=== PATIENT | female | born 1955 | race Caucasian/White ===

== ENCOUNTER 2019-03-22 06:17 | Inpatient (IN) ==
--- NOTE | 2019-02-14 15:50 | PAT Medication Instructions ---
Medication Instructions Date of Service February 14, 2019 Home Medications albuterol sulfate 2.5 mg INHALATION Q6H PRN azelastine 1 spray INTRANASAL BID PRN celecoxib [Celebrex] 200 mg PO HS citalopram [Celexa] 10 mg PO HS fluticasone propionate [Flonase Allergy Relief] 2 spray INTRANASAL HS PRN fluticasone propionate [Flovent HFA] 2 puff INHALATION BID PRN ipratropium-albuterol [Combivent Respimat] 2 puff INHALATION Q4H PRN lansoprazole 30 mg PO QAM prednisone 10 mg PO UD PRN Continue as directed prednisone 10 mg PO UD PRN (if needed) ASK your surgeon for instructions celecoxib [Celebrex] 200 mg PO HS Take morning of surgery With a small sip of water, OTHERWISE NOTHING TO EAT OR DRINK AFTER MIDNIGHT: albuterol sulfate 2.5 mg INHALATION Q6H PRN (use if needed; please bring with you to hospital day of surgery if possible) azelastine 1 spray INTRANASAL BID PRN (if needed) fluticasone propionate [Flovent HFA] 2 puff INHALATION BID PRN (if needed) ipratropium-albuterol [Combivent Respimat] 2 puff INHALATION Q4H PRN (if needed) lansoprazole 30 mg PO QAM Take evening before surgery albuterol sulfate 2.5 mg INHALATION Q6H PRN (if needed) azelastine 1 spray INTRANASAL BID PRN (if needed) citalopram [Celexa] 10 mg PO HS fluticasone propionate [Flonase Allergy Relief] 2 spray INTRANASAL HS PRN (if needed) fluticasone propionate [Flovent HFA] 2 puff INHALATION BID PRN (if needed) ipratropium-albuterol [Combivent Respimat] 2 puff INHALATION Q4H PRN (if needed) Other Notes If you have any questions please call us at [phone] or [phone] or [phone] or [phone]
--- NOTE | 2019-02-14 16:03 | PAT Medication Instructions ---
Medication Instructions Date of Service February 14, 2019 Home Medications albuterol sulfate 2.5 mg INHALATION Q6H PRN azelastine 1 spray INTRANASAL BID PRN celecoxib [Celebrex] 200 mg PO HS citalopram [Celexa] 10 mg PO HS fluticasone propionate [Flonase Allergy Relief] 2 spray INTRANASAL HS PRN fluticasone propionate [Flovent HFA] 2 puff INHALATION BID PRN ipratropium-albuterol [Combivent Respimat] 2 puff INHALATION Q4H PRN lansoprazole 30 mg PO QAM prednisone 10 mg PO UD PRN ASK your surgeon for instructions celecoxib [Celebrex] 200 mg PO HS Take morning of surgery With a small sip of water, OTHERWISE NOTHING TO EAT OR DRINK AFTER MIDNIGHT: albuterol sulfate 2.5 mg INHALATION Q6H PRN (if needed, and bring with you to the hospital) azelastine 1 spray INTRANASAL BID PRN (if needed) fluticasone propionate [Flovent HFA] 2 puff INHALATION BID PRN (if needed) ipratropium-albuterol [Combivent Respimat] 2 puff INHALATION Q4H PRN (if needed) lansoprazole 30 mg PO QAM prednisone 10 mg PO UD PRN (if needed) Take evening before surgery albuterol sulfate 2.5 mg INHALATION Q6H PRN (if needed) azelastine 1 spray INTRANASAL BID PRN (if needed) citalopram [Celexa] 10 mg PO HS fluticasone propionate [Flonase Allergy Relief] 2 spray INTRANASAL HS PRN (if needed) fluticasone propionate [Flovent HFA] 2 puff INHALATION BID PRN (if needed) ipratropium-albuterol [Combivent Respimat] 2 puff INHALATION Q4H PRN (if needed) prednisone 10 mg PO UD PRN (if needed) Other Notes If you have any questions please call us at [phone] or [phone] or [phone] or [phone]
--- NOTE | 2019-02-15 14:08 | Anesthesiology Consultation ---
Date of Service February 15, 2019 Assessment & Plan (1) Encounter for pre-operative examination: Cardiology Clearance 03/20/19 = "No further testing needed from a cardiac standpoint prior to her surgery." *PRESENCE OF SPINAL CORD STIMULATOR* Chart Review Chart Review: Acceptable Risk for Surgery and Patient seen in Pre Admission Testing Teaching & Discussion Instructed NPO after midnight before surgery, except medications with 15 cc of water. Medication instructions provided according to the PAT guidelines. History Surgery Operation Date: 03/22/19 08:40 Proposed Procedures p Right Total Knee Arthroplasty - Delgado Greene MD Height/Weight Height: 5 ft Weight: 83.6 kg Allergies Allergy/AdvReac Type Severity Reaction Status Date / Time Penicillins Allergy Unknown Unknown Verified 03/22/19 07:24 Sulfa (Sulfonamide AdvReac Vomiting Verified 03/22/19 06:50 Antibiotics) Medications Home Medications Medication Instructions Recorded Confirmed Last Taken albuterol sulfate 2.5 mg INHALATION Q6H PRN 02/07/19 03/22/19 Unknown azelastine 1 spray INTRANASAL BID PRN 02/07/19 03/22/19 02/19/19 celecoxib [Celebrex] 200 mg PO HS 02/07/19 03/22/19 03/21/19 22:00 citalopram [Celexa] 20 mg PO HS 02/07/19 03/22/19 03/21/19 22:00 fluticasone propionate [Flonase 2 spray INTRANASAL HS PRN 02/07/19 03/22/19 03/21/19 22:00 Allergy Relief] fluticasone propionate [Flovent 2 puff INHALATION BID PRN 02/07/19 03/22/1910/31 HFA] ipratropium-albuterol [Combivent 2 puff INHALATION Q4H PRN 02/07/19 03/22/19 03/21/19 10:00 Respimat] lansoprazole 30 mg PO QAM 02/07/19 03/22/19 03/21/19 22:00 prednisone 10 mg PO UD PRN 02/07/19 03/22/19 Unknown Active Medications Generic Name Dose Route Start Last Admin Trade Name Freq PRN Reason Stop Dose Admin Acetaminophen 1,000 mg 03/22/19 06:00 03/22/19 07:45 Tylenol PO 04/21/19 05:59 1,000 mg PREOP MARTHA Administration Celecoxib 200 mg 03/22/19 06:00 03/22/19 07:44 Celebrex PO 04/21/19 05:59 200 mg PREOP MARTHA Administration Dexamethasone 8 mg 03/22/19 06:00 03/22/19 07:45 Decadron PO 04/21/19 05:59 8 mg PREOP MARTHA Administration Famotidine 20 mg 03/22/19 06:00 03/22/19 07:44 Pepcid PO 04/21/19 05:59 20 mg PREOP MARTHA Administration Gabapentin 600 mg 03/22/19 06:00 03/22/19 07:44 Neurontin PO 04/21/19 05:59 600 mg PREOP MARTHA Administration Lactated Ringer's 1,000 mls @ 15 mls/hr 03/22/19 06:00 03/22/19 07:21 Lr IV 04/21/19 05:59 15 mls/hr .Q24H MARTHA Administration Vancomycin HCl 1,250 mg/ 275 mls @ 250 mls/hr 03/22/19 06:00 03/22/19 07:22 Sodium Chloride IV 03/23/19 05:59 250 mls/hr PREOP MARTHA Administration Metoclopramide HCl 10 mg 03/22/19 06:00 03/22/19 07:45 Reglan PO 04/21/19 05:59 10 mg PREOP MARTHA Administration Past Medical History Medical History Anxiety Asthma USES PRN INH 1XMO ON AVG COPD (chronic obstructive pulmonary disease) Depression Diverticular disease GERD (gastroesophageal reflux disease) History of colitis Nausea x 3 years, had cholecystectomy, ultimately ruled IBS. History of gastric ulcer IBS (irritable bowel syndrome) Osteoarthritis Sciatic nerve pain Shoulder pain Patient describes occasional twinges in upper chest/shoulder area; occurs at rest or with activity, patient feels secondary to indigestion. Exercise / Class Metabolic Activity II 4-5 Yardwork/Stairs/Walk up hill (Denies CP or SOB with 1 FOS) Past Family History Family History Mother Family history of diabetes mellitus Past Surgical History Surgical History History of arthroscopy of right knee History of cholecystectomy History of colonoscopy History of conization of cervix History of D&C History of esophagogastroduodenoscopy (EGD) History of fundoplication History of right knee surgery Nausea and vomiting after administration of anesthetic agent S/P insertion of spinal cord stimulator Status post correction of deviated nasal septum X 2 Past Anesthesia History No Hx of Anesthesia Complications (other than some PONV) History of PONV No Hx of Motion Sickness and History of PONV (few episodes) Social History Smoking Status: Never smoker Do You Dip or Chew Tobacco: No Hx Alcohol Use: Yes Alcohol type: beer and hard liquor alcohol intake frequency: holidays/special occasions only Hx Substance Use: No substance use type: does not use Review of Systems Pt denies any recent chest pain, shortness of breath, palpitations, cough, fever or URI. Physical Exam Vital Signs Last Vital Signs Temp 36.6 C 03/22/19 07:24 Pulse 60 03/22/19 07:24 Resp 18 03/22/19 07:24 BP 147/76 H 03/22/19 07:24 Pulse Ox 92 03/22/19 07:24 BP: 127/82 P: 75bpm SPO2: 95% T: 97.7 F R: 16 Constitutional No acute distress. ENMT Mouth: + dental bridge (upper L canine/cuspid); no chipped teeth and no loose teeth Thyromental Distance: < 3.5 Finger Breadths (3) Mallampati Class: III Neck normal visual inspection; neck extension not limited Respiratory normal respiratory effort Auscultation: lungs clear to auscultation bilaterally Cardiovascular Rate/Rhythm: regular rate and regular rhythm Heart Sounds: + murmur (I/ systolic RSB) Vessels: no carotid bruit Extremities: no edema Testing Laboratory Results 02/15/19 13:42 02/15/19 13:42 PT 10.4 Seconds (9.0-12.0) 02/15/19 13:42 INR 1.0 (0.9-1.1) 02/15/19 13:42 APTT 25.1 Seconds (21.0-31.0) 02/15/19 13:42 Hemoglobin A1c 5.9 % (4.5-5.6) H 02/15/19 13:42 Urine Color Yellow 02/15/19 Unknown Urine Appearance Clear (Clear) 02/15/19 Unknown Urine pH 5.0 (4.5-7.5) 02/15/19 Unknown Ur Specific [place] 1.019 (1.000-1.030) 02/15/19 Unknown Urine Protein Negative (Negative) 02/15/19 Unknown Urine Glucose (UA) Negative (Negative) 02/15/19 Unknown Urine Ketones Negative (Negative) 02/15/19 Unknown Urine Nitrite Negative (Negative) 02/15/19 Unknown Ur Leukocyte Esterase 1+ (Negative) H 02/15/19 Unknown Urine WBC (Auto) 1-5 /hpf (0-5) 02/15/19 Unknown Urine RBC (Auto) 0-4 /hpf (0-4) 02/15/19 Unknown U Hyaline Cast (Auto) 0 /lpf (0-5) 02/15/19 Unknown U Epithel Cells (Auto) 10-20 /lpf (0-5) H 02/15/19 Unknown Urine Bacteria (Auto) Negative (Negative) 02/15/19 Unknown Blood Type A Positive 02/15/19 13:42 Antibody Screen NEGATIVE 02/15/19 13:42 Electrocardiogram Date: 02/15/19 Findings: + NSR @ (75bpm) and + LBBB Chest X-Ray Date: 02/15/19 IMPRESSION: Cardiac silhouette is top normal in size. Otherwise, no acute process within the chest. Echocardiogram Date: 03/17/19 EF: 57% Left ventricular systolic function is normal. Right ventricular systolic function is normal. Mild mitral regurgitation is present. Trivial tricuspid regurgitation is present. Signal is inadequate to calculate pulmonary artery systolic pressure. The proximal ascending thoracic aorta is borderline enlarged at 3.6 cm.
--- NOTE | 2019-02-15 14:40 | XRay Report ---
XR chest Pre-admission PA/Lat HISTORY: Preop. COMPARISON: None. FINDINGS: The lungs are clear. No pleural effusions. No pneumothorax. The heart is top normal in size . Spinal stimulator leads terminate at the T6 level. Prior cholecystectomy. IMPRESSION: Cardiac silhouette is top normal in size. Otherwise, no acute process within the chest. Electronically signed by: Terry Hubbard M.D. 02/15/2019 2:39 PM
[2019-02-15 15:42] LABS: Basophils # (auto) 0.06 K/uL (0-0.2); Basophils % (auto) 0.9 %; Eosinophils # (auto) 0.17 K/uL (0-0.5); Eosinophils % (auto) 2.5 %; Hematocrit (blood only) 38.5 % (37-47); Hemoglobin 12.5 g/dL (12.0-16.0); Immature Granulocytes # (auto) 0.01 K/uL (0.00-0.02); Immature Granulocytes % (auto) 0.1 %; Lymphocytes # (auto) 1.79 K/uL (1.2-3.4); Lymphocytes % (auto) 26.4 %; Mean Corpuscular Hgb Conc 32.5 g/dL (32-36); Mean Corpuscular Volume 89.3 fL (80-100); Mean Platelet Volume 9.5 fL (7.4-10.4); Monocytes % (auto) 4.4 %; Neutrophils # (auto) 4.45 K/uL (1.4-6.5); Neutrophils % (auto) 65.7 %; Platelet Count 363 K/uL (130-400); RDW Coefficient of Variation 13.6 % (11.5-14.5); RDW Standard Deviation 44.8 fL (36.4-46.3); Red Blood Count 4.31 M/uL (4.2-5.4); White Blood Count 6.78 K/uL (4.8-10.8)
[2019-02-15 15:48] LABS: Albumin Level 3.7 gm/dl (3.4-5.0); BUN Creatinine Ratio 22.5 (10-20); Calcium 9.1 mg/dl (8.5-10.1); Creatinine Clr Calc Pharmacy 69.1 ml/min; Est GFR (African American) 90.2; Est GFR (Non-African American) 77.8; Potassium 4.3 mmol/L (3.5-5.1)
[2019-02-15 15:53] LABS: Partial Thromboplastin Ratio 0.9; Partial Thromboplastin Time 25.1 Seconds (21.0-31.0); Prothrombin Time 10.4 Seconds (9.0-12.0)
[2019-02-15 15:56] LABS: Appearance Urine Clear (Clear); Bacteria Urine Automated Negative (Negative); Bilirubin Urine Negative (Negative); Blood Urine Trace (Negative); Cast Urine Automated 0 /lpf (0-5); Color Urine Yellow; Glucose Urine UA Negative (Negative); Ketones Urine Negative (Negative); Leukocyte Esterase Urine 1+ (Negative); Nitrite Urine Negative (Negative); Protein Urine Negative (Negative); RBC Urine Automated 0-4 /hpf (0-4); Specific Gravity Urine 1.019 (1.000-1.030); Urobilinogen Urine Negative (Negative)
[2019-02-16 05:51] LABS: Estimated Average Glucose 123 mg/dl; Hemoglobin A1C 5.9 % (4.5-5.6)
--- NOTE | 2019-03-21 16:58 | History and Physical Report ---
DATE OF ADMISSION: 03/22/2019 CHIEF COMPLAINT: Chronic right knee pain. HISTORY OF PRESENT ILLNESS: This is a 63-year-old female patient of Dr. Ontiveros, complaining of chronic right knee pain, longstanding, now progressively getting worse. The patient has failed conservative treatment and has been diagnosed with end-stage osteoarthritis per clinical and radiographic exams. The patient wished to proceed with an elective right total knee arthroplasty. PAST MEDICAL HISTORY: Asthma, chronic cough, COPD, osteoarthritis, sciatica, acid reflux, hiatal hernia, obesity. SOCIAL HISTORY: Nonsmoker. Occasional drinker. PAST SURGICAL HISTORY: Deviated septum, cholecystectomy, acid reflux fundoplication, sciatic nerve dorsal column stimulator placement, right knee. FAMILY HISTORY: Noncontributory. REVIEW OF SYSTEMS: Chronic right knee pain and instability. Otherwise, denies any shortness of breath, chest pain, nausea, vomiting or any other joint complaints. MEDICATIONS: 1. Prevacid 30 mg daily. 2. Celexa 20 mg 1/2 tablet at night. 3. Zocor 40 mg at bedtime. 4. Celebrex 200 mg at bedtime. 5. Astelin 137 mcg 2 squirts in each nostril twice a day. 6. Flovent 110 mcg 2 puffs twice daily. 7. Combivent 18/103, 2 puffs every 4 hours as needed for asthma. 8. Flonase 50 mcg 2 squirts in each nostril at bedtime. 9. Prednisone 10 mg as directed. 10. She uses a liquid albuterol nebulizer as needed. ALLERGIES: SULFA AND PENICILLIN. PHYSICAL EXAMINATION: GENERAL: Well-developed, well-nourished 63-year-old female in no acute distress. She is alert and oriented x3 and pleasant. HEENT: Normocephalic, atraumatic. Extraocular motions are intact. Pupils are equal and reactive to light. HEART: Regular rate and rhythm, no murmurs. LUNGS: Clear. ABDOMEN: Soft, nontender, bowel sounds present. EXTREMITIES: Right knee reveals a varus deformity with medial joint line tenderness. She has a positive Fern's medially. She has limited range of motion of 0-125. Positive effusion. Neurologically and neurovascularly intact in her right lower extremity, 5/5 strength. DIAGNOSES: Right knee end-stage osteoarthritis, asthma, chronic cough, chronic obstructive pulmonary disease, osteoarthritis, sciatica, acid reflux, hiatal hernia, obesity. PLAN: The patient was advised of her diagnosis. Indications, risks, benefits, postop course have all been reviewed. The patient wished to proceed with a right total knee arthroplasty. Necessary consent forms, preoperative testing and clearances will be obtained.
[~2019-03-22 06:17] MED LIST: ACETAMINOPHEN 500 MG TAB PO SCH; CeleBREX 200 MG CAP PO SCH; FAMOTIDINE 20 MG TAB PO SCH; GABAPENTIN 600 MG DOSE PO SCH; LR 500ML BOLUS, THEN 15ML/HR IV SCH; METOCLOPRAMIDE HCL 10 MG TABLET PO SCH; ROPIVACAINE 0.5% HCL/PF 150 MG, BUPIVACAINE 0.5% MPF 30 ML, EPINEPHrine 30MG/30ML (OR U... INSTIL SCH; TRANEXAMIC ACID 1,000 MG **IV Intra-op IV SCH; TRANEXAMIC ACID 1,000 MG **IV Pre-op IV SCH; VANCOMYCIN HCL 1,250 MG in SODIUM CHLORIDE 0.9% 250 ML IV SCH; [UNRECOGNIZED DRUG - REMARK] SCH; dexAMETHasone 4 MG TAB PO SCH
--- OUTSIDE RECORDS SUMMARY | 2019-03-22 06:21 | External Medical Summary | Continuity of Care Document ---
:1955 Author Name Robinson Carter Address Unavailable Unavailable , Care Team Providers Name Role Phone NonMROSALIOG Raul Unavailable [email or web address] JAYLEN Carter, Ab Unavailable Unavailable Unavailable Unavailable Unavailable Problems Asthma (493.90) (J45.909) Joint pain, hip (719.45) (M25.559) Allergies and Adverse Reactions Sulfa Drugs (Allergy) Reaction: Nausea, Vomiting Medications Combivent 18-103 MCG/ACT AERO Refills: 0 Flonase 50 MCG/ACT SUSP Refills: 0 Astelin 137 MCG/SPRAY SOLN Refills: 0 Flovent AERO Refills: 0 Albuterol Sulfate 0.63 MG/3ML Inhalation Nebulization Soluti on Refills: 0 predniSONE TABS Refills: 0 Zocor TABS Refills: 0 Vicodin TABS Refills: 0 traMADol HCl TABS Refills: 0 Procedures History of Gastric Surgery Status: Compl eted History of Knee Surgery Status: Complete d History of Gallbladder Surgery Status: C ompleted History of Nasal Septal Deviation Repair Status: Completed Immunizations Immunizations not documented Family History Mother Family history of Diabetes Mellitus (V18.0) Status: Active Family history of Thyroid Status: Active Father Family history of Cirrhosis Status: Active Social History - Smoking Status Never smoker Plan of Treatment Planned Observations Planned Goals not documented Results No Known Results Results not documented
[2019-03-22] MEDS ORDERED: BUPIVACAINE 0.5 % 5 MG/1 ML PF 10ML VIAL ONE (06:38)
[2019-03-22] MEDS ORDERED: DEXAMETHASONE SOD INJ 4 MG/ML VIAL ONE (06:38)
[2019-03-22] MEDS ORDERED: BUPIVACAINE/EPINEPHRINE 0.25% 1:200,000 30 ML VIAL ONE (06:38)
[2019-03-22] MEDS ORDERED: MIDAZOLAM HCL 1 MG/ML 2ML VIAL ONE (06:53)
[2019-03-22] MEDS ORDERED: fentaNYL citrate 100 MCG/2 ML VIAL ONE ×2 (06:54→09:21)
--- NOTE | 2019-03-22 07:02 | History & Physical Bridge Note ---
Date of Service March 22, 2019 History & Physical Bridge Note I have examined the patient, reviewed the History & Physical and in the interval since the performance of the History & Physical I have noted the following changes of clinical significance: no changes noted
[2019-03-22] MEDS ORDERED: BACITRACIN INJ 50,000 UNIT VIAL ONE (08:17)
[2019-03-22] MEDS ORDERED: ORTHO JOINT ANESTHETIC ONE (08:17)
[2019-03-22] MEDS ORDERED: HYDROmorphone INJ 2 MG/ML SYR/VIAL IV PRN (08:41)
[2019-03-22] MEDS ORDERED: ePHEDrine sulfate 50 MG/ML AMP IV PRN (08:41)
[2019-03-22] MEDS ORDERED: ONDANSETRON INJ 2 MG/ML 2 ML VIAL IV PRN ×3 (08:41→12:35)
[2019-03-22] MEDS ORDERED: ATROPINE SULFATE 0.1 MG/ML 10ML SYR IV PRN (08:41)
[2019-03-22] MEDS ORDERED: fentaNYL citrate 100 MCG/2 ML VIAL IV PRN (08:41)
[2019-03-22] MEDS ORDERED: PROMETHAZINE HCL 6.25 MG in SODIUM CHLORIDE 0.9% 50 ML IV PRN (08:41)
[2019-03-22] MEDS ORDERED: PROPOFOL IV EMULSION 10 MG/ML 20 ML VIAL IV ONE (09:43)
[2019-03-22] MEDS ORDERED: LIDOCAINE HCL 2% 2 ML VIAL/AMP(20MG/ML) INFIL ONE (09:44)
[2019-03-22] MEDS ORDERED: MoRPHine SULFATE 2 MG/ML CARP ONE (10:22)
--- NOTE | 2019-03-22 10:32 | Post Operative Brief Note ---
Immediate Post Op Note v1 Date of Surgery March 22, 2019 Pre & Post Diagnosis Operation Date: 03/22/19 08:40 Pre-Op Diagnosis: Right Knee Degenerative Joint Disease Post-Op Diagnosis: Right Knee Degenerative Joint Disease I identified the patient and participated in the time-out.: Yes Procedure Operation Date: 03/22/19 08:40 Actual Procedures p Right Total Knee Arthroplasty(Right) - Delgado Greene MD Surgeon Delgado Greene MD Staff Electronic Warfare Officer [place] MON Estimated Blood Loss 5 Findings Consistent with Post-Op Diagnosis Specimens Bone cuts Drains Hemovac Drain Anesthesia Type General Regional Complications none Disposition Accompanied Patient To Recovery: No Disposition: Recovery Room Overlapping Procedure I was present for: the critical portions of procedure. Back up surgeon: was not required during procedure.
[2019-03-22] MEDS ORDERED: bisacodyL 10 MG SUPP PR PRN ×2 (11:32→12:35)
[2019-03-22] MEDS ORDERED: NALOXONE HCL 0.4 MG/1 ML VIAL/CARP IV PRN ×2 (11:32→12:35)
[2019-03-22] MEDS ORDERED: VANCOMYCIN CONSULT ACTIVE PRN ×2 (11:32→12:35)
[2019-03-22] MEDS ORDERED: METOCLOPRAMIDE HCL INJ 5 MG/ML 2 ML VIAL IV PRN (11:32)
[2019-03-22] MEDS ORDERED: OXYCODONE HCL IR 5 MG TAB (IMMEDIATE RELEASE) PO PRN (11:32)
[2019-03-22] MEDS ORDERED: HYDROmorphone INJ 0.5 MG/0.5 ML SYR IV PRN ×2 (11:32→12:35)
[2019-03-22] MEDS ORDERED: MAGNESIUM HYDROXIDE SUSP 30 ML UDC PO PRN ×2 (11:32→12:35)
[2019-03-22] MEDS ORDERED: VANCOMYCIN HCL 1,250 MG in SODIUM CHLORIDE 0.9% 250 ML IV SCH ×2 (11:45→19:00)
[2019-03-22] MEDS ORDERED: SODIUM CHLORIDE 0.9% 1000ML 1,000 ML IV SCH (11:45)
--- NOTE | 2019-03-22 11:53 | XRay Report ---
XR knee RT 1 or 2V routine CLINICAL HISTORY: Surgical Post Op COMPARISON: None. DISCUSSION: There are postsurgical changes of a total right knee arthroplasty and patellar resurfacin g. The femoral tibial components appear well seated. Overlying skin deysi and surgical drains. Ther e is gas in the soft tissues consistent with recent surgery area IMPRESSION: Postsurgical changes of a total right knee arthroplasty. ACT 112: Negative or not required by law. Electronically signed by: Juan C Rodriguez M.D. 03/22/2019 11:52 AM
[2019-03-22] MEDS ORDERED: FLUTICASONE HFA 110MCG INHALER INH PRN (12:35)
[2019-03-22] MEDS ORDERED: FLUTICASONE PROPIONATE NA SPR 16 GM BTL PRN (12:35)
[2019-03-22] MEDS ORDERED: IPRATROPIUM BROMIDE/ALBUTEROL respimat INH INH PRN (12:35)
[2019-03-22] MEDS ORDERED: ALBUTEROL 0.5% NEB SOLN 2.5 MG/0.5 ML VIAL INH PRN (12:35)
--- NOTE | 2019-03-22 13:14 | Anesthesiology Progress Note ---
Date of Service March 22, 2019 Anesthesia Post Procedure Vital Signs Vital Signs: Temp Pulse Pulse Resp BP Pulse Ox 03/22/19 13:01 81 16 148/79 H 97 03/22/19 12:30 36.7 C 84 16 156/78 H 97 03/22/19 11:55 87 15 141/73 H 94 03/22/19 11:45 76 13 128/67 94 03/22/19 11:35 76 13 128/67 94 03/22/19 11:25 85 14 128/73 91 03/22/19 11:15 81 17 141/70 H 88 L 03/22/19 11:05 36.5 C 96 H 12 146/81 H 94 03/22/19 07:24 36.6 C 60 18 147/76 H 92 Transfer of Care Handoff Completed per policy Notes Mental Status: alert / awake / arousable Patient Amnestic to Procedure: Yes Nausea / Vomiting: adequately controlled Pain: adequately controlled Airway Patency, RR, SpO2: stable & adequate BP & HR: stable & adequate Hydration State: stable & adequate Anesthetic Complications: no major complications apparent Notes: block working well in pacu
--- NOTE | 2019-03-22 13:16 | Consultation ---
Date of Consultation March 22, 2019 Assessment & Plan (1) Osteoarthritis of right knee: (2) Status post total knee replacement, right: S/P R TKA by Dr. Greene, POD #0 EBL 5 ml tolerated procedure well pain/wound management per ortho activity and therapy as directed by ortho ASA BID for dvt prophylaxis encourage incentive spirometry follow H&H (3) Asthma: No acute exacerbation Currently not taking any RADHA/LABA regularly (4) Pre-diabetes: Preop A1c 5.9 Received dexamethasone preoperatively Monitor fasting blood glucose (5) HLD (hyperlipidemia): previously had been on statin but quit taking encourage lifestyle modifications (6) Depression: Mood stable continue citalopram (7) GERD (gastroesophageal reflux disease): hx of Fundoplication Continue PPI (8) DVT prophylaxis: SCD/TEDS, ASA BID per ortho Disposition: Per primary Follow-up: PCP Dr. Maza upon discharge Patient was seen and examined in collaboration with Dr. Mullins, please see addendum Thank you for this consultation. We will follow the patient with you during their hospital stay. You can reach a member of the [facility] 05/10 via pager @ [phone]. Supervising Physician Co-Signing Physician Notes HISTORY: Record reviewed. Patient interviewed and examined. Care coordinated with Valentine Henning PA-C. Please refer to her documentation for complete history. Briefly, 63 YO F with history of asthma, prediabetes, and other problems. Right TKA performed by Dr. Greene. Doing well postoperatively. No chest pain, cough, SOB, nausea, vomiting. Pain well-controlled. EXAM: General- no distress Lungs- clear to auscultation; no respiratory distress Cardiovascular- RRR; III/ systolic murmur heard best at apex; no gallop; no JVD; no pretibial edema Abdomen- + bowel sounds, soft, nontender Extremities- no cyanosis; no calf tenderness: elastic bandage RLE, TEDS LLE, bilat SCD's Neuro- alert, oriented Skin- warm & dry DATA: Preoperative labs on 02/15/2019 were unremarkable. Random blood sugar is 126. Hemoglobin A1c 5.9. Chest x-ray 02/15/2019 showed no acute processes. EKG performed 02/15/2019 showed normal sinus rhythm at 75/minute, left bundle branch block, no acute changes. ASSESSMENT AND PLAN: Status post right total knee arthroplasty. Doing well postoperatively. History of asthma. Pulmonary status stable. Incentive spirometry. Moderately loud systolic heart murmur. Preoperative echocardiogram did not show any significant valvular heart disease. Please refer to ELIESER Henning's documentation for discussion of other issues. Thank you for this consultation. We will follow the patient with you during their hospital stay. My cell # is [phone]. You can reach a member of the [facility] Medicine Team 05/10 via pager @ [phone]. History of Present Illness Requesting Physician: Dr. Greene Reason for Consultation: Postop med management Attending Physician: Delgado Greene MD History of Present Illness This is a 63-year-old female who has significant PMH of asthma, HLD, GERD, Pre DM, depression who presents to [facility] for elective right TKA by Dr. Greene. Pt failed conservative outpt management for R knee OADJD. Tolerated procedure well. Denies any current pain. Sitting up eating lunch. Denies f/c/s, chest pain, sob, cough, hemoptysis, n/v/d, abdominal pain. Prior to procedure denies dysuria, increased urgency or frequency with urination, melena, hematochezia. She does have history of asthma which is currently stable. She takes Flovent and Combivent on an as-needed basis, and currently has not needed these. Her depression is currently controlled with citalopram. She initially wanted to decrease her dose; however, mother recently diagnosed with rectal cancer and has been very stressful. Otherwise feels mood is stable. She has prior history of fundoplication in which she takes chronic PPI for. She offers no further concerns or complaints. Pt outpt records reviewed in [employer]. Preop eCG revealed new LBBB. She underwent echocardiogram and nuclear stress test, negative for inducible ischemia. Allergies Allergy/AdvReac Type Severity Reaction Status Date / Time Penicillins Allergy Unknown Unknown Verified 03/22/19 07:24 cimetidine AdvReac Mild GI Verified 03/22/19 12:54 Sulfa (Sulfonamide AdvReac Vomiting Verified 03/22/19 06:50 Antibiotics) Home Medications Home Medications Medication Instructions Recorded Confirmed Type albuterol sulfate 2.5 mg INHALATION Q6H PRN 02/07/19 03/22/19 History azelastine 1 spray INTRANASAL BID PRN 02/07/19 03/22/19 History celecoxib [Celebrex] 200 mg PO HS 02/07/19 03/22/19 History citalopram [Celexa] 20 mg PO HS 02/07/19 03/22/19 History fluticasone propionate [Flonase 2 spray INTRANASAL HS PRN 02/07/19 03/22/19 History Allergy Relief] fluticasone propionate [Flovent 2 puff INHALATION BID PRN 02/07/19 03/22/19 History HFA] ipratropium-albuterol [Combivent 2 puff INHALATION Q4H PRN 02/07/19 03/22/19 History Respimat] lansoprazole 30 mg PO QAM 02/07/19 03/22/19 History prednisone 10 mg PO UD PRN 02/07/19 03/22/19 History Patient History Medical History (Updated 03/22/19 @ 13:37 by Valentine Henning PA-C) Anxiety Asthma USES PRN INH 1XMO ON AVG COPD (chronic obstructive pulmonary disease) Depression Diverticular disease GERD (gastroesophageal reflux disease) History of colitis Nausea x 3 years, had cholecystectomy, ultimately ruled IBS. History of gastric ulcer HLD (hyperlipidemia) IBS (irritable bowel syndrome) Osteoarthritis Pre-diabetes (Unknown) Sciatic nerve pain Shoulder pain Patient describes occasional twinges in upper chest/shoulder area; occurs at rest or with activity, patient feels secondary to indigestion. Surgical History (Updated 03/22/19 @ 13:34 by Valentine Henning PA-C) History of arthroscopy of right knee History of cholecystectomy History of colonoscopy History of conization of cervix History of D&C History of esophagogastroduodenoscopy (EGD) History of fundoplication History of right knee surgery Nausea and vomiting after administration of anesthetic agent S/P insertion of spinal cord stimulator Status post correction of deviated nasal septum X 2 Family History Mother Family history of diabetes mellitus Social History (Updated 03/22/19 @ 13:28 by Valentine Henning PA-C) Preferred Language: Djiboutian Communication Ability: Effective Bobtail Driver Required: No Beliefs That Will Affect Care: Orthodoxy Orthodoxy Beliefs: NONDENOMINATIONAL Current Living Situation: Alone Other Information That Helps Us Care for You: No Feels Safe at Home: Yes Safety Concerns: Feels Safe At This Time Smoking Status: Never smoker Do You Dip or Chew Tobacco: No ; Second Hand Exposure: Yes ( A CHILD) ; Hx Alcohol Use: Yes Alcohol type: beer and hard liquor Alcohol Intake Frequency: Rarely Hx Substance Use: No Review of Systems Review of Systems: All systems reviewed & are unremarkable except as noted in HPI & below Physical Exam Physical Exam: Constitutional: WD/WN, vitals as above, NAD, sitting up in bed, pleasant, conversing easily Head: Normocephalic, Atraumatic Eyes: PERRL, conjunctivae normal, anicteric sclerae ENMT: external ear and nose normal, oropharynx normal Neck: trachea midline, no thyromegaly normal visual inspection Respiratory: normal respiratory effort, lungs clear to auscultation, no wheeze, rales, rhonchi. Normal insp/exp effort, no accessory muscle use Cardiovascular: RRR, no murmur, no edema Vessels: no JVD or carotid bruit Chest: normal inspection of chest Abdomen: normal bowel sounds, soft, nontender, no hepatosplenomegaly Musculoskeletal: no cyanosis or clubbing, extremities motor strength 5/5 b/l Upper ext, b/l lower ext not tested, RLE dressing CDI, SCD/TEDS in place Skin: no rashes, warm and dry normal turgor Neurologic: PERRL, EOMI, accommodation nl, no face palsy, no dysarthria CN's II-XI intact bilaterally and moves all extremities Psychiatric: A+Ox3, euthymic affect Lymphatic: no cervical or axillary lymphadenopathy : deferred Results & Data Vital Signs (Past 12 Hours) Vital Signs Temp Pulse Pulse Resp BP Pulse Ox 03/22/19 13:01 81 16 148/79 H 97 03/22/19 12:30 36.7 C 84 16 156/78 H 97 03/22/19 11:55 87 15 141/73 H 94 03/22/19 11:45 76 13 128/67 94 03/22/19 11:35 76 13 128/67 94 03/22/19 11:25 85 14 128/73 91 03/22/19 11:15 81 17 141/70 H 88 L 03/22/19 11:05 36.5 C 96 H 12 146/81 H 94 03/22/19 07:24 36.6 C 60 18 147/76 H 92 Laboratory Results Preop lab work H&H 12.5 and 38.5, WBC 6.78, platelet 363, A1c 5.3, BUN 18, creatinine 0.81 Diagnostic Findings CXR: IMPRESSION: Cardiac silhouette is top normal in size. Otherwise, no acute process within the chest. Pre op Echo: EF 57%, mild MR, prox ascending thoracic aorta 3.6 cm, borderline enlarged, left ventricular concentric hypertrophy Nuclear stress test revealed LVEF 65%, apical thinning chang-septal, normal wall motion, negative for inducible ischemia Medications Administered Discontinued Medications Acetaminophen (Tylenol) 1,000 mg PO PREOP MARTHA Stop: 04/21/19 05:59 Last Admin: 03/22/19 07:45 Dose: 1,000 mg Documented by: [id number] Bacitracin (Bacitracin) Confirm Administered Dose 50,000 units .ROUTE .[facility] ONE Stop: 03/22/19 08:18 Last Admin: 03/22/19 10:02 Dose: 50,000 units Documented by: [id number] Celecoxib (Celebrex) 200 mg PO PREOP MARTHA Stop: 04/21/19 05:59 Last Admin: 03/22/19 07:44 Dose: 200 mg Documented by: [id number] Dexamethasone (Decadron) 8 mg PO PREOP MARTHA Stop: 04/21/19 05:59 Last Admin: 03/22/19 07:45 Dose: 8 mg Documented by: [id number] Famotidine (Pepcid) 20 mg PO PREOP MARTHA Stop: 04/21/19 05:59 Last Admin: 03/22/19 07:44 Dose: 20 mg Documented by: [id number] Gabapentin (Neurontin) 600 mg PO PREOP MARTHA Stop: 04/21/19 05:59 Last Admin: 03/22/19 07:44 Dose: 600 mg Documented by: [id number] Lactated Ringer's (Lr) 1,000 mls @ 15 mls/hr IV .Q24H MARTHA Stop: 04/21/19 05:59 Last Infusion: 03/22/19 08:48 Dose: 0 mls/hr Documented by: [id number] Admin: 03/22/19 07:21 Dose: 15 mls/hr Documented by: [id number] Vancomycin HCl 1,250 mg/ (Sodium Chloride) 275 mls @ 250 mls/hr IV PREOP MARTHA Stop: 03/23/19 05:59 Last Infusion: 03/22/19 12:38 Dose: 0 mls/hr Documented by: [id number] Admin: 03/22/19 07:22 Dose: 250 mls/hr Documented by: [id number] Ropivacaine 150 mg/Bupivacaine HCl 30 ml/Epinephrine HCl 0.15 mg/Ketorolac Tromethamine 30 mg/Dexamethasone 4 mg/ Ketamine HCl 10 mg/ Clonidine HCl 100 mcg/ Sodium Chloride 93.35 mls @ 0 mls/hr INSTIL PREOP MARTHA Stop: 03/22/19 06:01 Last Admin: 03/22/19 10:31 Dose: 93.35 mls/hr Documented by: [id number] Tranexamic Acid (Tranexamic Acid / 0.7% Nacl) 1,000 mg in 100 mls @ 600 mls/hr IV TODAY@0600 [facility] Stop: 03/22/19 06:09 Last Infusion: 03/22/19 08:47 Dose: 0 mls/hr Documented by: [id number] Admin: 03/22/19 08:32 Dose: 600 mls/hr Documented by: [id number] Tranexamic Acid (Tranexamic Acid / 0.7% Nacl) 1,000 mg in 100 mls @ 600 mls/hr IV TODAY@0600 [facility] Stop: 03/22/19 06:09 Last Infusion: 03/22/19 12:37 Dose: 0 mls/hr Documented by: [id number] Admin: 03/22/19 10:33 Dose: 600 mls/hr Documented by: [id number] Metoclopramide HCl (Reglan) 10 mg PO PREOP MARTHA Stop: 04/21/19 05:59 Last Admin: 03/22/19 07:45 Dose: 10 mg Documented by: [id number] Miscellaneous (Ortho Joint Anesthetic) Confirm Administered Dose 1 ea .ROUTE .[facility] ONE Stop: 03/22/19 08:18 Last Admin: 03/22/19 10:02 Dose: Not Given Documented by: [id number] ECG Rhythm: normal sinus Findings: + LBBB
--- NOTE | 2019-03-22 13:54 | Operative Report ---
Post Operative Report Pre & Post Diagnosis Operation Date: 03/22/19 08:40 Pre-Op Diagnosis: Right Knee Degenerative Joint Disease Post-Op Diagnosis: Right Knee Degenerative Joint Disease I identified the patient and participated in the time-out.: Yes Procedure Operation Date: 03/22/19 08:40 Actual Procedures p Right Total Knee Arthroplasty(Right) - Delgado Greene MD Surgeon Delgado Greene MD Ict Managers Otis MON Estimated Blood Loss 5 Findings Consistent with Post-Op Diagnosis Specimens Bone cuts Drains 2 Hemovac Anesthesia Type General Regional Complications none Disposition Accompanied Patient To Recovery: No Disposition: Recovery Room Indications 63-year-old female with chronic progressive osteoarthritis in her right knee. She has had 3 prior knee surgeries with open arthrotomy. Radiographs demonstrate tricompartmental DJD most difficult and medial compartment which is close to being [id number] on flexion views in the medial compartment with 40 degree PA weightbearing films. Patient's had extensive conservative management. Description of Procedure Patient taken to the operating room placed supine on the operating table and anesthetized under general and regional block anesthesia. Exam under anesthesia demonstrated 0 through 125 degrees range of motion no instability both arthroscopic and arthrotomy scar with the arthrotomy scar being midline. A pneumatic tourniquet was placed about the thigh of the right lower extremity. The right lower extremity was prepped and draped in usual fashion. Leg was elevated exsanguinated with an Esmarch bandage and the pneumatic was raised to 325 mm mercury. An anterior incision was made across the right knee. The skin was incised longitudinally through the old longitudinal scar extending approximately to above the level of the patella. Subcutaneous flaps were elevated and an incision was made through the medial retinaculum extending up into the mid third of the quadriceps tendon and extended down to the medial tibial tubercle. Intra-articular findings demonstrated tricompartmental osteoarthritis with a large inferior patellar osteophyte primarily medial compartment OA with grade 3 and 4 changes of the posterior medial compartment. The knee was exposed by excising the infrapatellar fat pad, excising the menisc al remnants and anterior cruciate ligament . Any inflamed synovial tissue was resected. The fat pad over the anterior femur was resected for placement of the component in that area. The lateral synovial bands were release. Appropriate releases were performed to balance ligaments. The femur was exposed. The custom femoral cutting block was pinned in position. The distal femoral cutting block was applied. The distal femoral cut was made with the oscillating saw. The size 8, 4-in-1 cutting block was placed. The anterior and posterior chamfer cuts were made. The knee was extended and a subperiosteal peel lateral release was performed around the patella. The patella width was measured and width was reproduced using freehand cut technique. The 32 x 8.5 millimeter symmetrical patella was used. 3 drill holes are made for the pegs. The tibia was exposed. A custom tibial cutting block was positioned and drill holes were made for the cutting guide. Cutting guide was placed and the proximal cut was made with the oscillating saw. All osteophytes were resected. The lamina make ready mechanic was used to assess ligamentous balance and the ligaments were balanced in extension and flexion. The tibia was reexposed and measured for a size E tibial component. This was externally rotated in line with the tibial tubercle and the fixation pins were drilled. The proximal tibia was fashioned with the drill and punch. The size 8 CR femoral trial was inserted. The trial MC inserts were used. The 12 mm insert gave balanced ligaments through full range of motion. The patella tracked centrally. the trials were removed. The orthomix anesthetic cocktail was injected per protocol. The knee was then copiously irrigated with pulsatile lavage antibiotic solution with bacitracin. The final components were cemented with Simplex cement. The final components were [employer] persona CR narrow right 8 femoral component, E tibia, MC 12 mm polyethylene for tibia and 32 x 8 mm symmetrical patella. While the cement cured with the knee in full extension the Betadine soak was used per protocol. After the cement cured, the knee joint was copiously irrigated with antibiotic solution with bacitracin. 2 drains were brought out laterally and connected to a Hemovac. The quadriceps tendon and medial retinaculum were closed with interrupted [id number] #1 Vicryl sutures. The knee was taken through a full range of motion and repair was secure. The subcutaneous tissues were closed with 2-0 Vicryl sutures and skin was closed with deysi. Sterile dressings were applied and the patient tolerated the procedure well. Otis MON my physician assistant men's soccer coach, assisted in soft tissue retraction instrument management leg positioning the closure and will participate in the postoperative care of the patient. I attest to the content of the Intraoperative Record and any orders documented therein. Any exceptions are noted below.
[2019-03-22] MEDS ORDERED: ACETAMINOPHEN 500 MG TAB PO SCH (14:00)
[2019-03-22] MEDS: SODIUM CHLORIDE 0.9% 1000ML 1,000 ML IV SCH (14:37)
[2019-03-22] MEDS: ACETAMINOPHEN 500 MG TAB PO SCH ×2 (14:39→21:01)
[2019-03-22] MEDS: AZELASTINE ~ ORDER AWAITING ACTION SCH ×2 (15:50→23:30)
[2019-03-22] MEDS ORDERED: FERROUS GLUCONATE 324 MG TAB PO SCH (17:00)
[2019-03-22] MEDS: FERROUS GLUCONATE 324 MG TAB PO SCH (18:02)
[2019-03-22] MEDS: DOCUSATE SODIUM 100 MG CAP PO SCH (20:46)
[2019-03-22] MEDS: SENNA 8.6 MG TAB PO SCH (20:46)
[2019-03-22] MEDS: CITALOPRAM 20 MG TAB PO SCH (20:46)
[2019-03-22] MEDS: ASPIRIN 81 MG ECTAB PO SCH (20:46)
[2019-03-22] MEDS ORDERED: ASPIRIN 81 MG ECTAB PO SCH (21:00)
[2019-03-22] MEDS ORDERED: DOCUSATE SODIUM 100 MG CAP PO SCH (21:00)
[2019-03-22] MEDS ORDERED: SENNA 8.6 MG TAB PO SCH (21:00)
[2019-03-23] MEDS: ACETAMINOPHEN 500 MG TAB PO SCH ×3 (05:17→21:07)
[2019-03-23 06:47] LABS: Hematocrit (blood only) 30.6 % (37-47); Mean Corpuscular Hemoglobin 28.7 pg (25-34); Mean Corpuscular Hgb Conc 32.7 g/dL (32-36); Mean Corpuscular Volume 87.9 fL (80-100); Mean Platelet Volume 9.3 fL (7.4-10.4); Platelet Count 260 K/uL (130-400); RDW Coefficient of Variation 14.5 % (11.5-14.5); RDW Standard Deviation 46.7 fL (36.4-46.3); Red Blood Count 3.48 M/uL (4.2-5.4); White Blood Count 15.58 K/uL (4.8-10.8)
[2019-03-23 07:19] LABS: BUN Creatinine Ratio 23.8 (10-20); Calcium 8.2 mg/dl (8.5-10.1); Creatinine Clr Calc Pharmacy 74.3 ml/min; Est GFR (Non-African American) 85.4; Potassium 3.7 mmol/L (3.5-5.1)
[2019-03-23] MEDS: MULTIVITAMIN TAB PO SCH (08:40)
[2019-03-23] MEDS: FERROUS GLUCONATE 324 MG TAB PO SCH ×2 (08:40→18:01)
[2019-03-23] MEDS: ASPIRIN 81 MG ECTAB PO SCH ×2 (08:41→21:06)
[2019-03-23] MEDS: PANTOprazole 40 MG TAB PO SCH (08:41)
[2019-03-23] MEDS: DOCUSATE SODIUM 100 MG CAP PO SCH ×2 (08:41→22:22)
[2019-03-23] MEDS ORDERED: MULTIVITAMIN TAB PO SCH (09:00)
--- NOTE | 2019-03-23 09:39 | Orthopedic Progress Note ---
Date of Service March 23, 2019 Assessment & Plan (1) Status post total knee replacement, right: POD #1, Right TKA PT/ OT DVT proph- ASA D/C plans- Home w HH As per medicine. Subjective POD #1, Doing well. Denies SOB, CP, N/V. Pain controlled well. Wishes for HH on discharge. Physical Exam Physical Exam: Right knee dressings/ drain c/d/i. No calf tenderness. Toes/ ankle mobile. A&Ox3. Results & Data Vital Signs (Past 12 Hours) Vital Signs Temp Pulse Resp BP Pulse Ox 03/23/19 07:08 36.9 C 65 16 129/69 96 03/23/19 04:05 36.9 C 77 16 121/70 96 03/22/19 23:25 37 C 77 18 134/70 95
--- NOTE | 2019-03-23 10:03 | Hospitalist Progress Note ---
Date of Service March 23, 2019 Assessment & Plan (1) Osteoarthritis of right knee: (2) Status post total knee replacement, right: S/P R TKA by Dr. Greene, POD #1 EBL 5 ml tolerated procedure well pain/wound management per ortho activity and therapy as directed by ortho ASA BID for dvt prophylaxis encourage incentive spirometry - patient using regularly follow H&H (3) Asthma: No acute exacerbation Currently not taking any RADHA/LABA regularly (4) Pre-diabetes: Preop A1c 5.9 Received dexamethasone preoperatively Monitor fasting blood glucose (5) HLD (hyperlipidemia): previously had been on statin but quit taking encourage lifestyle modifications (6) Depression: Mood stable continue citalopram (7) GERD (gastroesophageal reflux disease): hx of Fundoplication Continue PPI (8) DVT prophylaxis: SCD/TEDS, ASA BID per ortho Disposition: Per primary Follow-up: PCP Dr. Maza upon discharge Patient seen in collaboration with Dr. Murphy. Please see addendum. Thank you for this consultation. We will follow the patient with you during their hospital stay. You can reach a member of the [facility] Hospitalist Team 05/10 via pager @ [phone]. Supervising Physician Co-Signing Physician Notes Physical Exam Gen-AAO x 3, NAD, Afebrile Head-NCAT, EOMI, PERRLA, Anicteric Sclera, No Posterior Pharyngeal Erythema Neck-Supple, No JVD, No Thyromegaly, No Masses, No LAD, No Bruits Lungs-Clear to Auscultation Bilaterally, No Rales, No Rhonchi, No Wheezing, No Crepitus Chest-No S4, +S1, +S2, No S3, No Murmurs, No Rubs, No Gallops, No Ectopy Abdomen-Soft, Bowel Sounds Present, Non Tender, Non Distended, No Hepatomegaly, No Splenomegaly, No Palpable Masses, No Rebound, No Rigidity, No Guarding Musculoskeletal-Full Range of Motion Bilaterally, No CVAT Extremities-No Cyanosis, No Clubbing, No Edema, ice to knee Nuero-Cranial Nerves II-XII grossly intact, Motor WNL, DTRs WNL, Strength WNL, Non Focal Psych-Normal Mood Subjective Seen and examined in 312-1. Denies surgical site pain. Denies any distal pain or paresthesias to R BLE. Tolerating diet well without any nausea, vomiting or abdominal pain. No chest pain or shortness of breath. Urinating on own without issue. Passing flatus but no BM yet. Review of Systems Review of Systems: At least ten systems reviewed and negative except as noted in the HPI. Physical Exam Physical Exam: Physical Exam: General Appearance: WD/WN, vitals as above, NAD, sitting up in bedside chair watching TV, pleasant, conversing easily Head: normocephalic, atraumatic Eyes: normal inspection, PERRL, conjunctivae normal, anicteric sclerae ENT: external ear and nose normal, oropharynx normal Neck: trachea midline, no thyromegaly, normal visual inspection Respiratory: lungs clear to auscultation, no wheezing, rales or rhonchi. Normal insp/exp effort, no accessory muscle use Cardiovascular: regular rate, rhythm, no murmur appreciated, normal peripheral pulses Chest: normal inspection of chest Abdomen/GI: normal bowel sounds, soft, nontender, no hepatosplenomegaly Extremities/Musculoskeletal: + R knee with surgical dressing intact. Hemovac visualized. No cyanosis or clubbing, extremities motor strength 5/5 Neurologic: PERRL, EOMI, accommodation nl, no face palsy, no dysarthria, CN's II-XI intact bilaterally and moves all extremities Psychiatric: A+Ox3, euthymic affect Skin: no rashes, normal color, warm/dry Results & Data Vital Signs (Past 12 Hours) Vital Signs Temp Pulse Resp BP Pulse Ox 03/23/19 07:08 36.9 C 65 16 129/69 96 03/23/19 04:05 36.9 C 77 16 121/70 96 03/22/19 23:25 37 C 77 18 134/70 95 Laboratory Results Short CBC 03/23/19 Range/Units 06:04 WBC 15.58 H (4.8-10.8) K/uL Hgb 10.0 L (12.0-16.0) g/dL Hct 30.6 L (37-47) % Plt Count 260 (130-400) K/uL BMP 03/23/19 06:04 Sodium 138 Potassium 3.7 Chloride 109 H Carbon Dioxide 25 BUN 18 Creatinine 0.75 Glucose 120 H Calcium 8.2 L
[2019-03-23] MEDS: OXYCODONE HCL IR 5 MG TAB (IMMEDIATE RELEASE) PO PRN ×3 (10:17→20:02)
[2019-03-23] MEDS: AZELASTINE ~ ORDER AWAITING ACTION SCH ×3 (10:53→23:57)
[2019-03-23] MEDS: SENNA 8.6 MG TAB PO SCH (21:06)
[2019-03-23] MEDS: CITALOPRAM 20 MG TAB PO SCH (21:07)
[2019-03-24 05:43] LABS: Hematocrit (blood only) 29.7 % (37-47); Hemoglobin 9.5 g/dL (12.0-16.0); Mean Corpuscular Hemoglobin 28.4 pg (25-34); Mean Corpuscular Volume 88.9 fL (80-100); Mean Platelet Volume 8.8 fL (7.4-10.4); Platelet Count 252 K/uL (130-400); RDW Coefficient of Variation 14.9 % (11.5-14.5); RDW Standard Deviation 48.4 fL (36.4-46.3); Red Blood Count 3.34 M/uL (4.2-5.4); White Blood Count 10.24 K/uL (4.8-10.8)
[2019-03-24] MEDS: ACETAMINOPHEN 500 MG TAB PO SCH ×2 (05:58→13:29)
[2019-03-24 06:22] LABS: BUN Creatinine Ratio 25.9 (10-20); Calcium 8.1 mg/dl (8.5-10.1); Creatinine Clr Calc Pharmacy 69.7 ml/min; Est GFR (African American) 91.6
[2019-03-24] MEDS: OXYCODONE HCL IR 5 MG TAB (IMMEDIATE RELEASE) PO PRN (07:28)
[2019-03-24] MEDS: DOCUSATE SODIUM 100 MG CAP PO SCH (07:29)
[2019-03-24] MEDS: FERROUS GLUCONATE 324 MG TAB PO SCH (07:30)
[2019-03-24] MEDS: MULTIVITAMIN TAB PO SCH (07:30)
[2019-03-24] MEDS: AZELASTINE ~ ORDER AWAITING ACTION SCH (07:30)
[2019-03-24] MEDS: ASPIRIN 81 MG ECTAB PO SCH (07:30)
[2019-03-24] MEDS: PANTOprazole 40 MG TAB PO SCH (07:30)
--- NOTE | 2019-03-24 08:03 | Orthopedic Progress Note ---
Date of Service March 24, 2019 Assessment & Plan (1) Status post total knee replacement, right: POD #2, Right TKA PT/ OT DVT proph- ASA D/C plans- Home w HH today As per medicine. Subjective POD #2, doing well. denies SOB, CP, N/V. Did well in PT Pain controlled Physical Exam Physical Exam: Right knee silverlon dressing c/d/i, no drainage. No calf tenderness. Toes/ ankle mobile. A&Ox3. Results & Data Vital Signs (Past 12 Hours) Vital Signs Temp Pulse Resp BP BP Pulse Ox 03/24/19 06:47 36.8 C 61 18 157/90 H 97 03/23/19 22:57 36.6 C 56 L 16 155/81 H 94
--- NOTE | 2019-03-24 09:47 | Hospitalist Progress Note ---
Date of Service March 24, 2019 Assessment & Plan (1) Osteoarthritis of right knee: (2) Status post total knee replacement, right: S/P R TKA by Dr. Greene, POD #2 EBL 5 ml tolerated procedure well pain/wound management per ortho activity and therapy as directed by ortho ASA BID for dvt prophylaxis, had Hx PUD in past encourage incentive spirometry - patient using regularly DC home from IM Standpoint (3) Asthma: No acute exacerbation Currently not taking any RADHA/LABA regularly (4) Pre-diabetes: Preop A1c 5.9 (5) HLD (hyperlipidemia): previously had been on statin but quit taking encourage lifestyle modifications (6) Depression: Mood stable continue citalopram (7) GERD (gastroesophageal reflux disease): hx of Fundoplication Continue PPI (8) DVT prophylaxis: SCD/TEDS, ASA BID per ortho, Hx Ulcers from NSAIDS in past Disposition: Per primary Follow-up: PCP Dr. Maza and Ortho on DC Can DC from IM standpoint ROS-No Headache, No Visual Changes, No Nausea, No Vomiting, No Fever, No Chills, No Neck Pain or Stiffness, No Chest Pain, No Palpitations, No SOB, No ALLEN, No Cough, No Sputum, No Wheezing, No Abdominal Pain, No Diarrhea, No Hematemesis, No Hemoptysis, No Unexpected Weight Loss, No Flank pain, No Melena, No Hematochezia, No Frequency, No Urgency, No Burning, No Hematuria, No Rashes, No Diaphoresis. Appetite is Normal, Sore Knee, better c Ice Physical Exam Gen-AAO x 3, NAD, Afebrile Head-NCAT, EOMI, PERRLA, Anicteric Sclera, No Posterior Pharyngeal Erythema Neck-Supple, No JVD, No Thyromegaly, No Masses, No LAD, No Bruits Lungs-Clear to Auscultation Bilaterally, No Rales, No Rhonchi, No Wheezing, No Crepitus Chest-No S4, +S1, +S2, No S3, No Murmurs, No Rubs, No Gallops, No Ectopy Abdomen-Soft, Bowel Sounds Present, Non Tender, Non Distended, No Hepatomegaly, No Splenomegaly, No Palpable Masses, No Rebound, No Rigidity, No Guarding Musculoskeletal-Full Range of Motion Bilaterally, No CVAT Extremities-No Cyanosis, No Clubbing, No Edema Nuero-Cranial Nerves II-XII grossly intact, Motor WNL, DTRs WNL, Strength WNL, Non Focal Psych-Normal Mood Results & Data Vital Signs (Past 12 Hours) Vital Signs Temp Pulse Resp BP BP Pulse Ox 03/24/19 06:47 36.8 C 61 18 157/90 H 97 03/23/19 22:57 36.6 C 56 L 16 155/81 H 94
[2019-03-24] MEDS: SODIUM CHLORIDE 0.9% 1000ML 1,000 ML IV SCH (10:52)
--- NOTE | 2019-03-28 09:02 | Discharge Summary ---
DISCHARGE DIAGNOSIS: Degenerative joint disease, right knee. SECONDARY DIAGNOSES: Asthma, chronic obstructive pulmonary disease, chronic cough, osteoarthritis, sciatica, acid reflux, obesity, depression, anxiety, history of peptic ulcer disease, hyperlipidemia, irritable bowel syndrome, prediabetic. CONSULTS: Valentine Henning PA-C/Isidro Mullins MD COMPLICATIONS: None. PROCEDURES: Right total knee arthroplasty performed by Dr. Greene on 03/22/2019. BRIEF HISTORY: As dictated in the history and physical. HOSPITAL SUMMARY: The patient was admitted on the above-noted date and had the above-noted surgery performed, which she tolerated well. On the first postoperative day, patient was doing well without complaints. Denied shortness of breath, chest pain or nausea, vomiting. Pain was controlled and she was hoping for home health services upon discharge. Dressings were clean, dry and intact. Calves were soft and nontender. Toes and ankle were mobile and she was alert and oriented x3. Vital signs were stable and they were afebrile. The patient was started on PT and OT protocols and continued on DVT prophylaxis and pain management [facility]. By her second postoperative day, she was doing well and denied shortness of breath, chest pain, nausea or vomiting. She was progressing well with her PT and pain was controlled. Silverlon dressing was clean, dry and intact. She had no drainage. Calf was nontender. Toes were mobile and she remained afebrile and vital signs were stable. Postop day 2, hemoglobin 9.5, hematocrit 29.7. She continued to remain [facility] and by 03/24/2019 was felt she could be discharged to home. For further review, please see chart. LABORATORY AND X-RAY DATA: As per chart. DISCHARGE INSTRUCTIONS: The patient was discharged to home in satisfactory condition with home health services. DIET: Diabetic type 2. ACTIVITY: Weightbearing as tolerated. Follow TK instruction sheets and special care instructions as noted. Follow up with Dr. Greene in 2 weeks. The patient to call for appointment if one has not been made for you. DISCHARGE MEDICATIONS: Acetaminophen 1000 mg p.o. q.8 hours, aspirin 81 mg p.o. b.i.d., ferrous gluconate 324 mg p.o. b.i.d., oxycodone 5 mg p.o. q.4 hours p.r.n. Resume home meds as listed.
== END 2019-03-24 14:38 | disposition home health service (06) | DRG 470 ==
LOC: ASU 06:17 → 3E 11:34